=== PATIENT | male | born 1945 | race Two or more races ===

== ENCOUNTER 2016-05-05 11:37 | Inpatient (IN) | payer OTHER ==
[2016-05-05 11:55] VITALS: BMI 26.4
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
[2016-05-05] MEDS ORDERED: diphenhydrAMINE HCL 50 MG CAPSULE PO PRN (12:51)
[2016-05-05] MEDS ORDERED: NICOTINE POLACRILEX 4 MG GUM BUC PRN (12:51)
[2016-05-05] MEDS ORDERED: LOPERAMIDE HCL 2 MG CAPSULE PO PRN (12:51)
[2016-05-05] MEDS ORDERED: MAGNESIUM HYDROX 2400MG/30ML ORAL SUSPENSION 30 ML CUP PO PRN (12:51)
[2016-05-05] MEDS ORDERED: MAGNESIUM CITRATE 300 ML BOTTLE PO PRN (12:51)
[2016-05-05] MEDS ORDERED: P-EPHED 60MG/TRIPROLIDI 2.5MG TABLET PO PRN (12:51)
[2016-05-05] MEDS ORDERED: MENTHOL/PHENOL 1 EACH UD MM PRN (12:51)
[2016-05-05] MEDS ORDERED: MAG HYDROX/AL HYDROX/SIMETH 30 ML UNIT-DOSE CUP PO PRN (12:51)
[2016-05-05] MEDS ORDERED: hydrOXYzine PAMOATE 50 MG CAPSULE (FP) PO PRN (12:51)
[2016-05-05] MEDS ORDERED: guaiFENesin/D-METHORPHAN HB 10 ML UNIT-DOSE CUPS PO PRN (12:51)
[2016-05-05] MEDS ORDERED: chlordiazePOXIDE HCL 25 MG CAPSULE PO PRN (12:51)
[2016-05-05] MEDS ORDERED: ACETAMINOPHEN 325 MG TABLET (FP) PO PRN (12:51)
[2016-05-05] MEDS ORDERED: IBUPROFEN 400 MG TABLET (FP) PO PRN (12:51)
[2016-05-05] MEDS ORDERED: chlordiazePOXIDE HCL 25 MG CAPSULE PO ONE (13:44)
[2016-05-05 16:03] LABS: URINE APPEARANCE CLEAR; URINE BILIRUBIN NEGATIVE (NEGATIVE); URINE BLOOD NEGATIVE (NEGATIVE); URINE COLOR LTYELLOW; URINE GLUCOSE (UA) NEGATIVE (NEGATIVE); URINE KETONE NEGATIVE (NEGATIVE); URINE LEUK ESTERASE NEGATIVE (NEGATIVE); URINE NITRITE NEGATIVE (NEGATIVE); URINE PROTEIN NEGATIVE (NEGATIVE); URINE UROBILINOGEN NEGATIVE E.U./dl (0.2-1.0)
[2016-05-05] MEDS: chlordiazePOXIDE HCL 25 MG CAPSULE PO SCH ×2 (17:04→22:07)
--- NOTE | 2016-05-05 17:42 | EKG ---
Test Reason : Blood Pressure : / mmHG Vent. Rate : 068 BPM Atrial Rate : 068 BPM P-R Int : 152 ms QRS Dur : 094 ms QT Int : 438 ms P-R-T Axes : 064 058 045 degrees QTc Int : 465 ms NORMAL SINUS RHYTHM NORMAL ECG NO PREVIOUS ECGS AVAILABLE Confirmed by CHARISSA MCGHEE MD ([id number]) on 05/05/2016 5:42:19 PM Referred By: Confirmed By:CHARISSA MCGHEE MD
[2016-05-05] MEDS ORDERED: THIAMINE HCL 100 MG TABLET (FP) PO SCH (22:00)
[2016-05-06] MEDS: chlordiazePOXIDE HCL 25 MG CAPSULE PO SCH ×2 (05:30→10:23)
[2016-05-06] MEDS ORDERED: ARIPiprazole 5 MG TABLET (FP) PO SCH (10:00)
[2016-05-06] MEDS ORDERED: NICOTINE 21 MG/24 HOURS TOPICAL PATCH TD SCH (10:00)
[2016-05-06] MEDS ORDERED: PRENATAL VITAMINS W/ FOLIC ACID TABLET (FP) PO SCH (10:00)
[2016-05-06] MEDS ORDERED: TOLNAFTATE 1% CREAM 15 GM TUBE TP SCH (10:00)
--- NOTE | 2016-05-06 10:07 | CONSULT ---
[facility] Psychiatric Consult - Data Date of interview: 05/06/16 Admission source: [facility] Identifying data: This is 70 years old chronic alcoholic with psychiatric hospitaliation history intoxicated with: Alcohol and Nicotine Substance Abuse History: - Smoking Cessation. Smoking history: Current every day smoker. Have you smoked in the past 12 months: Yes. Aproximately how many cigarettes per day: 20. Cigars Per Day: 0. Hx Chewing Tobacco Use: No. Initiated information on smoking cessation: Yes. 'Breaking Loose' booklet given : 05/05/16. - Substance & Tx. History. Hx Alcohol Use: Yes. Substance Use Type: Alcohol. Hx Substance Use Treatment: Yes. - Substances Abused. Alcohol-vodka. Route: Oral. Frequency: Daily. Amount used: 1 1/2 pts. Age of first use: 18. Date of Last Use: 05/04/16 Medical History: hISOTYR, s/p cHOLECYSTECTOMY, Prostatectomy, LBP, Hypercholesterolemia, HTN, PPD + History Psychiatric History: Patient reports recent psychiatric hospitalizationj on 2015 at [facility]. Patient reports taking prior to admission: Trazodone 150mg po qhs. Abilify 5mg po bid Physical/Sexual Abuse/Trauma History: Denies Additional Comment: Trazodone 150mg po qhs. Abilify 5mg po bid Mental Status Exam - Mental Status Exam Alert and Oriented to: Person Cognitive Function: Fair Patient Appearance: Unkempt Mood: Sad Affect: Flat Patient Behavior: Sedated Speech Pattern: Delayed Thought Process: Circumstantial Thought Disorder: Being Controlled Hallucinations: Denies Suicidal Ideation: Denies Homicidal Ideation: Denies Insight/Judgement: Fair Sleep: Difficulty falling asleep Appetite: Weight loss Muscle strength/Tone: Mild Hypotonicity Gait/Station: Shuffling Additional Comments: Trazodone 150mg po qhs. Abilify 5mg po bid Psychiatric Findings - Problem List ([place] 1, 2,3) (1) Alcohol dependence with uncomplicated withdrawal Current Visit: Yes Status: Chronic (2) Nicotine dependence Current Visit: Yes Status: Chronic Qualifiers: Nicotine product type: cigarettes Substance use status: uncomplicated Qualified Code(s): F17.210 - Nicotine dependence, cigarettes, uncomplicated Comment: patch and gum nicotine placement (3) Alcohol induced insomnia Current Visit: Yes Status: Acute (4) Alcohol-induced anxiety disorder Current Visit: Yes Status: Acute (5) Drug-induced mood disorder Current Visit: Yes Status: Acute - Initial Treatment Plan Initial Treatment Plan: Trazodone 150mg po qhs. Abilify 5mg po bid
[2016-05-06 10:26] LABS: ALBUMIN 3.8 g/dl (3.4-5.0); ALK PHOS 77 U/L (45-117); ANION GAP 11 (8-16); BILIRUBIN,TOTAL 0.3 mg/dL (0.2-1.0); CALCIUM 9.4 mg/dL (8.5-10.1); CO2 27 mmol/L (21-32); CREATININE 1.1 mg/dL (0.7-1.3); GLUCOSE,RANDOM 126 mg/dL (74-106); SGOT/AST 33 U/L (15-37); SGPT/ALT 27 U/L (12-78); TOT PROT 7.3 g/dl (6.4-8.2)
[2016-05-06 10:39] LABS: MCH 27.9 pg (25.7-33.7); MCHC 32.4 g/dl (32.0-35.9); MEAN CELL VOLUME 86.2 fl (80-96); PLATELET COUNT 208 K/MM3 (134-434); RDW 15.6 % (11.9-15.9); WHITE BLOOD COUNT 6.6 K/mm3 (4.0-10.0)
--- NOTE | 2016-05-06 12:45 | PN ---
S CIWA - CIWA Score Nausea/Vomitin Muscle Tremors: 3 Anxiety: 3 Agitation: 3 Paroxysmal Sweats: 1-Minimal Palms Moist Orientation: 0-Oriented Tacttile Disturbances: 1-Very Mild Itch/Numbness Auditory Disturbances: 1-Very Mild Visual Disturbances: 1-Very Mild Sensitivity Headache: 2-Mild CIWA-Ar Total Score: 18 S Progress Note (SOAP) Subjective: ALERT,IRRITABLE,ANXIOUS,INTERRUPTED SLEEP,TREMOR Objective: 05/06/16 12:42 Vital Signs Temperature 98.4 F 05/06/16 10:01 Pulse Rate 71 05/06/16 10:01 Respiratory Rate 18 05/06/16 10:01 Blood Pressure 142/74 05/06/16 10:01 O2 Sat by Pulse Oximetry (%) EKG NSR,NORMAL ECG Laboratory Last Values WBC 6.6 K/mm3 (4.0-10.0) D 05/06/16 06:00 RBC 4.68 M/mm3 (4.00-5.60) 05/06/16 06:00 Hgb 13.1 GM/dL (11.7-16.9) 05/06/16 06:00 Hct 40.4 % (35.4-49) 05/06/16 06:00 MCV 86.2 fl (80-96) 05/06/16 06:00 MCHC 32.4 g/dl (32.0-35.9) 05/06/16 06:00 RDW 15.6 % (11.9-15.9) 05/06/16 06:00 Plt Count 208 K/MM3 (134-434) 05/06/16 06:00 MPV 9.0 fl (7.5-11.1) 05/06/16 06:00 Sodium 140 mmol/L (136-145) 05/06/16 06:00 Potassium 4.0 mmol/L (3.5-5.1) 05/06/16 06:00 Chloride 102 mmol/L (98-107) 05/06/16 06:00 Carbon Dioxide 27 mmol/L (21-32) 05/06/16 06:00 Anion Gap 11 (8-16) 05/06/16 06:00 BUN 14 mg/dL (7-18) D 05/06/16 06:00 Creatinine 1.1 mg/dL (0.7-1.3) 05/06/16 06:00 Creat Clearance w eGFR > 60 (>60) 05/06/16 06:00 Random Glucose 126 mg/dL (74-106) H 05/06/16 06:00 Calcium 9.4 mg/dL (8.5-10.1) 05/06/16 06:00 Total Bilirubin 0.3 mg/dL (0.2-1.0) D 05/06/16 06:00 AST 33 U/L (15-37) D 05/06/16 06:00 ALT 27 U/L (12-78) 05/06/16 06:00 Alkaline Phosphatase 77 U/L (45-117) 05/06/16 06:00 Total Protein 7.3 g/dl (6.4-8.2) D 05/06/16 06:00 Albumin 3.8 g/dl (3.4-5.0) D 05/06/16 06:00 Urine Color Ltyellow 05/05/16 14:00 Urine Appearance Clear 05/05/16 14:00 Urine pH 5.0 (5.0-8.0) 05/05/16 14:00 Ur Specific [place] 1.011 (1.001-1.035) 05/05/16 14:00 Urine Protein Negative (NEGATIVE) 05/05/16 14:00 Urine Glucose (UA) Negative (NEGATIVE) 05/05/16 14:00 Urine Ketones Negative (NEGATIVE) 05/05/16 14:00 Urine Blood Negative (NEGATIVE) 05/05/16 14:00 Urine Nitrite Negative (NEGATIVE) 05/05/16 14:00 Urine Bilirubin Negative (NEGATIVE) 05/05/16 14:00 Urine Urobilinogen Negative E.U./dl (0.2-1.0) 05/05/16 14:00 Ur Leukocyte Esterase Negative (NEGATIVE) 05/05/16 14:00 LABS PENDING Assessment: 05/06/16 12:44 WITHDRAWAL SYMPTOM Plan: CONTINUE DETOX,BGM MONITORING INITIAL GLUCOSE IS 126
[2016-05-06] MEDS ORDERED: chlordiazePOXIDE HCL 25 MG CAPSULE PO SCH (17:00)
[2016-05-06 21:30] VITALS: BP 132/71; PULSE 67; TEMP 97.9
[2016-05-06] MEDS ORDERED: traZODone HCL 50 MG TABLET (FP) PO SCH (22:00)
--- NOTE | 2016-05-06 22:40 | DS ---
[facility] Detox Discharge Summary Admission Date: 05/05/16 Discharge Date: 05/06/16 - History Present History: Alcohol Dependence Additional Comments: RECEIVED NURSE CALL, PATIENT WANTS TO SIGN OUT NOW, HAD VERBAL CONFLICT WITH ROOMMATE, REFUSED TO SWITCH ROOM WITH OTHER PATIENT REFUSED TO WAIT FACE TO FACE WITH THE PROVIDER Pertinent Past History: HYPERTENSION HYPERLIPID NICOTINE DEPENDENCE - Physical Exam Results Vital Signs: Vital Signs Temperature 97.9 F 05/06/16 21:29 Pulse Rate 67 05/06/16 21:29 Respiratory Rate 18 05/06/16 21:29 Blood Pressure 132/71 05/06/16 21:29 O2 Sat by Pulse Oximetry (%) Pertinent Admission Physical Exam Findings: WITHDRAWAL SX Laboratory Last Values WBC 6.6 K/mm3 (4.0-10.0) D 05/06/16 06:00 RBC 4.68 M/mm3 (4.00-5.60) 05/06/16 06:00 Hgb 13.1 GM/dL (11.7-16.9) 05/06/16 06:00 Hct 40.4 % (35.4-49) 05/06/16 06:00 MCV 86.2 fl (80-96) 05/06/16 06:00 MCHC 32.4 g/dl (32.0-35.9) 05/06/16 06:00 RDW 15.6 % (11.9-15.9) 05/06/16 06:00 Plt Count 208 K/MM3 (134-434) 05/06/16 06:00 MPV 9.0 fl (7.5-11.1) 05/06/16 06:00 Sodium 140 mmol/L (136-145) 05/06/16 06:00 Potassium 4.0 mmol/L (3.5-5.1) 05/06/16 06:00 Chloride 102 mmol/L (98-107) 05/06/16 06:00 Carbon Dioxide 27 mmol/L (21-32) 05/06/16 06:00 Anion Gap 11 (8-16) 05/06/16 06:00 BUN 14 mg/dL (7-18) D 05/06/16 06:00 Creatinine 1.1 mg/dL (0.7-1.3) 05/06/16 06:00 Creat Clearance w eGFR > 60 (>60) 05/06/16 06:00 Random Glucose 126 mg/dL (74-106) H 05/06/16 06:00 Calcium 9.4 mg/dL (8.5-10.1) 05/06/16 06:00 Total Bilirubin 0.3 mg/dL (0.2-1.0) D 05/06/16 06:00 AST 33 U/L (15-37) D 05/06/16 06:00 ALT 27 U/L (12-78) 05/06/16 06:00 Alkaline Phosphatase 77 U/L (45-117) 05/06/16 06:00 Total Protein 7.3 g/dl (6.4-8.2) D 05/06/16 06:00 Albumin 3.8 g/dl (3.4-5.0) D 05/06/16 06:00 Urine Color Ltyellow 05/05/16 14:00 Urine Appearance Clear 05/05/16 14:00 Urine pH 5.0 (5.0-8.0) 05/05/16 14:00 Ur Specific [place] 1.011 (1.001-1.035) 05/05/16 14:00 Urine Protein Negative (NEGATIVE) 05/05/16 14:00 Urine Glucose (UA) Negative (NEGATIVE) 05/05/16 14:00 Urine Ketones Negative (NEGATIVE) 05/05/16 14:00 Urine Blood Negative (NEGATIVE) 05/05/16 14:00 Urine Nitrite Negative (NEGATIVE) 05/05/16 14:00 Urine Bilirubin Negative (NEGATIVE) 05/05/16 14:00 Urine Urobilinogen Negative E.U./dl (0.2-1.0) 05/05/16 14:00 Ur Leukocyte Esterase Negative (NEGATIVE) 05/05/16 14:00 RPR Titer Nonreactive (NONREACTIVE) 05/06/16 06:00 LAB NOTED - Treatment Hospital Course: Detox Protocol Followed, Responded well - Medication Discharge Medications: Ambulatory Orders Aripiprazole [Abilify -] 5 mg PO BID #60 tablet 02/06/16 Trazodone HCl [Desyrel -] 150 mg PO HS #30 tablet 02/06/16 Aripiprazole [Abilify -] 5 mg PO BID #60 tablet 05/06/16 Trazodone HCl [Desyrel -] 150 mg PO HS #30 tablet 05/06/16 - AMA Did Patient Leave Against Medical Advice: Yes
[2016-05-07] MEDS ORDERED: chlordiazePOXIDE 5 MG CAPSULE PO SCH (17:00)
[2016-05-08] MEDS ORDERED: chlordiazePOXIDE HCL 10 MG CAPSULE PO SCH (17:00)
== END 2016-05-06 22:40 | disposition left against medical advice (07) | DRG 894 ==
LOC: YASAS 11:37 → Y6N 13:05
PROVIDERS: ADMIT Internal Medicine; ATTEND Internal Medicine
PROC: HZ2ZZZZ Detoxification Services for Substance Abuse Treatment (ICD-10-PCS; principal; 2016-05-06)
DX: F10.230 Alcohol dependence with withdrawal, uncomplicated (principal); F17.210 Nicotine dependence, cigarettes, uncomplicated; F10.282 Alcohol dependence with alcohol-induced sleep disorder; F10.280 Alcohol dependence with alcohol-induced anxiety disorder; F19.24 Other psychoactive substance dependence with psychoactive substance-induced mood disorder; I10 Essential (primary) hypertension
CPT/HCPCS: 36415; 80053; 81003; 85027; 86593; 93005; 93010

== ENCOUNTER 2016-11-03 17:05 | Inpatient (IN) | payer OTHER ==
--- NOTE | 2016-11-03 20:22 | HP ---
CIWA Score - CIWA Score Nausea/Vomitin Muscle Tremors: 3 Anxiety: 3 Agitation: 3 Paroxysmal Sweats: 2 Orientation: 0-Oriented Tacttile Disturbances: 2-Mild Itch/Numbness/Burn Auditory Disturbances: 2-Mild Harshness/Frighten Visual Disturbances: 2-Mild Sensitivity Headache: 2-Mild CIWA-Ar Total Score: 22 Admission ROS BHS - HPI Chief Complaint: i need help to stop drinking alcohol and cocaine Allergies/Adverse Reactions: Allergies Allergy/AdvReac Type Severity Reaction Status Date / Time No Known Allergies Allergy Verified 11/03/16 21:12 History of Present Illness: this 71 years old male with alcohol and cocaine dependence,seeking detox,last treatment [facility] 05/05/16 buddy 05/06/16 syncope bipolar disorder nicotine dependence multiple admissions in the past,keep relapsing longest period of sobriety 7 years Exam Limitations: No Limitations - Ebola screening Have you traveled outside of the country in the last 21 days: No (N) Have you had contact with anyone from an Ebola affected area: No Do you have a fever: No - Review of Systems Constitutional: Loss of Appetite, Malaise, Night Sweats, Changes in sleep, Weakness EENT: reports: Nose Congestion Respiratory: reports: No Symptoms reported Cardiac: reports: No Symptoms Reported GI: reports: Diarrhea, Nausea, Vomiting, Abdominal cramping : reports: No Symptoms Reported Musculoskeletal: reports: Back Pain, Muscle Pain Integumentary: reports: Dryness Neuro: reports: Headache, Tremors Endocrine: reports: No Symptoms Reported Hematology: reports: No Symptoms Reported Psychiatric: reports: No Sypmtoms Reported (bipolar disorder), Judgement Intact , Mood/Affect Appropiate, other Patient History - Patient Medical History Hx Anemia: No Hx Asthma: No Hx Chronic Obstructive Pulmonary Disease (COPD): No Hx Cancer: No Hx Cardiac Disorders: No Hx Congestive Heart Failure: No Hx Hypertension: Yes (no med) Hx Hypercholesterolemia: Yes (lipitor 20 mgs hs) Hx Pacemaker: No HX Cerebrovascular Accident: No Hx Seizures: No Hx Dementia: No Hx Diabetes: No Hx Gastrointestinal Disorders: No Hx Liver Disease: No Hx Genitourinary Disorders: No Hx Sexually Transmitted Disorders: No Hx Renal Disease (ESRD): No Hx Thyroid Disease: No Hx Human Immunodeficiency Virus (HIV): No (negative last 09/12) Hx Hepatitis C: No (negative) Hx Depression: Yes (on med) Hx Suicide Attempt: No Hx Bipolar Disorder: Yes (on med) Hx Schizophrenia: Yes (schizoaffective disorder) Other Medical History: no suicidal,no homicidal - Patient Surgical History Past Surgical History: Yes Hx Neurologic Surgery: No Hx Cataract Extraction: No Hx Cardiac Surgery: No Hx Lung Surgery: No Hx Breast Surgery: No Hx Breast Biopsy: No Hx Abdominal Surgery: No Hx Appendectomy: Yes (at age 18 yrs) Hx Cholecystectomy: No Hx Genitourinary Surgery: No Hx Section: No Hx Orthopedic Surgery: No Other Surgical History: prostatectomy in 2008 for bph Anesthesia Reaction: No - PPD History Previous Implant?: Yes Documented Results: Negative w/o proof PPD to be Administered?: Yes - Smoking Cessation Smoking history: Current every day smoker Have you smoked in the past 12 months: Yes Aproximately how many cigarettes per day: 20 Cigars Per Day: 0 Hx Chewing Tobacco Use: No Initiated information on smoking cessation: Yes 'Breaking Loose' booklet given: 11/03/16 - Substance & Tx. History Hx Alcohol Use: Yes Hx Substance Use: Yes Substance Use Type: Alcohol, Cocaine Hx Substance Use Treatment: Yes ([facility] 05/05/16 to 05/06/16) - Substances Abused Alcohol Route: Oral Frequency: Daily Amount used: 1pint of vodka/5 of 24 ozs of beer Age of first use: 18 Date of Last Use: 11/03/16 Cocaine Route: Inhalation Frequency: 1-2 times per week Amount used: 60$ Age of first use: 37 Date of Last Use: 11/02/16 Family Disease History - Family Disease History Family Disease History: Diabetes: Mother (alcoholic,), Heart Disease: Mother, Respiratory: Mother, Other: Brother (alcohol,dsa,) Admission Physical Exam [facility] - Physical General Appearance: Yes: Moderate Distress, Tremorous, Irritable, Sweating, Anxious HEENTM: Yes: Normal Voice, KAREN, Pharynx Normal Respiratory: Yes: Lungs Clear, Normal Breath Sounds, No Respiratory Distress Neck: Yes: Within Normal Limits, Supple, Trachea in good position Breast: Yes: Within Normal Limits Cardiology: Yes: Within Normal Limits, Regular Rhythm, Regular Rate, S1, S2 Abdominal: Yes: Within Normal Limits, Normal Bowel Sounds, Non Tender, Flat, Soft Genitourinary: Yes: Within Normal Limits Back: Yes: Muscle Spasm Musculoskeletal: Yes: Back pain, Muscle Pain Extremities: Yes: Tremors Neurological: Yes: manager environmental health and safety II-XII NML intact, Fully Oriented, Alert, Motor Strength 5/5 Integumentary: Yes: Dry Lymphatic: Yes: Within Normal Limits - Diagnostic (1) Alcohol dependence with uncomplicated withdrawal Current Visit: No Status: Chronic (2) Hypercholesteremia Current Visit: No Status: Chronic Comment: zetia (3) Hypertension Current Visit: No Status: Chronic Qualifiers: Hypertension type: essential hypertension Qualified Code(s): I10 - Essential (primary) hypertension Comment: enalapril 10 mg last dose a month ago (4) Nicotine dependence Current Visit: No Status: Chronic Qualifiers: Nicotine product type: cigarettes Substance use status: uncomplicated Qualified Code(s): F17.210 - Nicotine dependence, cigarettes, uncomplicated Comment: patch and gum nicotine placement (5) Weight loss Current Visit: Yes Status: Acute (6) Bipolar disorder Current Visit: Yes Status: Acute (7) S/P appendectomy Current Visit: Yes Status: Acute (8) S/P prostatectomy Current Visit: Yes Status: Acute (9) Tinea pedis Current Visit: Yes Status: Acute Cleared for Admission [facility] - Detox or Rehab S Level of Care: Medically Managed Detox Regimen/Protocol: Librium S Breath Alcohol Content Breath Alcohol Content: 0.100
[2016-11-03] MEDS ORDERED: MAGNESIUM CITRATE 300 ML BOTTLE PO PRN (20:50)
[2016-11-03] MEDS ORDERED: LOPERAMIDE HCL 2 MG CAPSULE PO PRN (20:50)
[2016-11-03] MEDS ORDERED: IBUPROFEN 400 MG TABLET (FP) PO PRN (20:50)
[2016-11-03] MEDS ORDERED: MAG HYDROX/AL HYDROX/SIMETH 30 ML UNIT-DOSE CUP PO PRN (20:50)
[2016-11-03] MEDS ORDERED: guaiFENesin/D-METHORPHAN HB 10 ML UNIT-DOSE CUPS PO PRN (20:50)
[2016-11-03] MEDS ORDERED: chlordiazePOXIDE HCL 25 MG CAPSULE PO ONE (20:50)
[2016-11-03] MEDS ORDERED: MAGNESIUM HYDROX 2400MG/30ML ORAL SUSPENSION 30 ML CUP PO PRN (20:50)
[2016-11-03] MEDS ORDERED: chlordiazePOXIDE HCL 25 MG CAPSULE PO PRN (20:50)
[2016-11-03] MEDS ORDERED: hydrOXYzine PAMOATE 50 MG CAPSULE (FP) PO PRN (20:50)
[2016-11-03] MEDS ORDERED: ACETAMINOPHEN 325 MG TABLET (FP) PO PRN (20:50)
[2016-11-03] MEDS ORDERED: diphenhydrAMINE HCL 50 MG CAPSULE PO PRN (20:50)
[2016-11-03] MEDS ORDERED: MENTHOL/PHENOL 1 EACH UD MM PRN (20:50)
[2016-11-03] MEDS ORDERED: P-EPHED 60MG/TRIPROLIDI 2.5MG TABLET PO PRN (20:50)
[2016-11-03 21:25] VITALS: BMI 24.7
[2016-11-03] MEDS: THIAMINE HCL 100 MG TABLET (FP) PO SCH (21:59)
[2016-11-03] MEDS: chlordiazePOXIDE HCL 25 MG CAPSULE PO SCH (22:00)
[2016-11-04 00:59] LABS: URINE APPEARANCE SLCLOUDY; URINE BILIRUBIN NEGATIVE (NEGATIVE); URINE BLOOD 1+ (NEGATIVE); URINE COLOR YELLOW; URINE GLUCOSE (UA) NEGATIVE (NEGATIVE); URINE KETONE NEGATIVE (NEGATIVE); URINE LEUK ESTERASE TRACE (NEGATIVE); URINE NITRITE NEGATIVE (NEGATIVE); URINE UROBILINOGEN NEGATIVE mg/dL (0.2-1.0)
[2016-11-04 01:16] LABS: URINE PROTEIN 1+ (NEGATIVE)
[2016-11-04 01:18] LABS: URINE BACTERIA MANY /hpf (NONE SEEN); URINE MUCUS RARE; URINE RBC 8 /hpf (0-3); URINE WBC 8 /hpf (3-5); YEAST FEW
[2016-11-04] MEDS: chlordiazePOXIDE HCL 25 MG CAPSULE PO SCH ×4 (05:50→22:08)
[2016-11-04 10:04] LABS: MCH 28.6 pg (25.7-33.7); MCHC 32.5 g/dl (32.0-35.9); MEAN CELL VOLUME 88.1 fl (80-96); MEAN PLT VOLUME 9.1 fl (7.5-11.1); PLATELET COUNT 182 K/MM3 (134-434); RDW 15.2 % (11.9-15.9); WHITE BLOOD COUNT 4.5 K/mm3 (4.0-10.0)
[2016-11-04 10:06] LABS: ANION GAP 5 (8-16); CO2 29 mmol/L (21-32); GLUCOSE,RANDOM 143 mg/dL (74-106)
[2016-11-04] MEDS: TOLNAFTATE 1% CREAM 15 GM TUBE TP SCH ×2 (10:06→22:07)
[2016-11-04] MEDS: PRENATAL VITAMINS W/ FOLIC ACID TABLET (FP) PO SCH (10:06)
[2016-11-04 10:09] LABS: ALK PHOS 65 U/L (45-117); BILIRUBIN,TOTAL 0.3 mg/dL (0.2-1.0); CALCIUM 9.1 mg/dL (8.5-10.1); CREATININE 1.2 mg/dL (0.7-1.3); SGOT/AST 29 U/L (15-37); SGPT/ALT 36 U/L (12-78); TOT PROT 5.9 g/dl (6.4-8.2)
--- NOTE | 2016-11-04 10:24 | PN ---
[facility] CIWA - CIWA Score Nausea/Vomitin-No Nausea/No Vomiting Muscle Tremors: 4-Moderate,w/Arms Extend Anxiety: 4-Mod. Anxious/Guarded Agitation: 4-Moderately Restless Paroxysmal Sweats: 1-Minimal Palms Moist Orientation: 0-Oriented Tacttile Disturbances: 3-Moderate Itch/Numb/Burn Auditory Disturbances: 0-None Visual Disturbances: 0-None Headache: 0-None Present CIWA-Ar Total Score: 16 BHS Progress Note (SOAP) Subjective: TREMO Objective: 11/04/16 10:33 Vital Signs Temperature 97.0 F L 11/04/16 09:22 Pulse Rate 84 11/04/16 09:22 Respiratory Rate 18 11/04/16 09:22 Blood Pressure 117/72 11/04/16 09:22 O2 Sat by Pulse Oximetry (%) Laboratory Last Values WBC 4.5 K/mm3 (4.0-10.0) D 11/04/16 07:40 RBC 4.19 M/mm3 (4.00-5.60) 11/04/16 07:40 Hgb 12.0 GM/dL (11.7-16.9) 11/04/16 07:40 Hct 37.0 % (35.4-49) 11/04/16 07:40 MCV 88.1 fl (80-96) 11/04/16 07:40 MCH 28.6 pg (25.7-33.7) 11/04/16 07:40 MCHC 32.5 g/dl (32.0-35.9) 11/04/16 07:40 RDW 15.2 % (11.9-15.9) 11/04/16 07:40 Plt Count 182 K/MM3 (134-434) 11/04/16 07:40 MPV 9.1 fl (7.5-11.1) 11/04/16 07:40 Sodium 143 mmol/L (136-145) 11/04/16 07:40 Potassium 4.3 mmol/L (3.5-5.1) 11/04/16 07:40 Chloride 109 mmol/L (98-107) H 11/04/16 07:40 Carbon Dioxide 29 mmol/L (21-32) 11/04/16 07:40 Anion Gap 5 (8-16) L 11/04/16 07:40 BUN 19 mg/dL (7-18) H D 11/04/16 07:40 Creatinine 1.2 mg/dL (0.7-1.3) 11/04/16 07:40 Creat Clearance w eGFR > 60 (>60) 11/04/16 07:40 Random Glucose 143 mg/dL (74-106) H 11/04/16 07:40 Calcium 9.1 mg/dL (8.5-10.1) 11/04/16 07:40 Total Bilirubin 0.3 mg/dL (0.2-1.0) 11/04/16 07:40 AST 29 U/L (15-37) 11/04/16 07:40 ALT 36 U/L (12-78) D 11/04/16 07:40 Alkaline Phosphatase 65 U/L (45-117) 11/04/16 07:40 Total Protein 5.9 g/dl (6.4-8.2) L 11/04/16 07:40 Albumin 3.0 g/dl (3.4-5.0) L D 11/04/16 07:40 Urine Color Yellow 11/04/16 00:30 Urine Appearance Slcloudy 11/04/16 00:30 Urine pH 5.0 (5.0-8.0) 11/04/16 00:30 Urine Protein 1+ (NEGATIVE) H 11/04/16 00:30 Urine Glucose (UA) Negative (NEGATIVE) 11/04/16 00:30 Urine Ketones Negative (NEGATIVE) 11/04/16 00:30 Urine Blood 1+ (NEGATIVE) H 11/04/16 00:30 Urine Nitrite Negative (NEGATIVE) 11/04/16 00:30 Urine Bilirubin Negative (NEGATIVE) 11/04/16 00:30 Urine Urobilinogen Negative mg/dL (0.2-1.0) 11/04/16 00:30 Ur Leukocyte Esterase Trace (NEGATIVE) 11/04/16 00:30 Urine RBC 8 /hpf (0-3) 11/04/16 00:30 Urine WBC 8 /hpf (3-5) 11/04/16 00:30 Urine Bacteria Many /hpf (NONE SEEN) 11/04/16 00:30 Urine Mucus Rare 11/04/16 00:30 Urine Yeast Few 11/04/16 00:30 Assessment: 11/04/16 10:33 WITHDRAWAL SX Plan: CONTINUE DETOX
--- NOTE | 2016-11-04 14:50 | EKG ---
Test Reason : Blood Pressure : / mmHG Vent. Rate : 060 BPM Atrial Rate : 060 BPM P-R Int : 158 ms QRS Dur : 094 ms QT Int : 454 ms P-R-T Axes : 063 061 054 degrees QTc Int : 454 ms NORMAL SINUS RHYTHM NORMAL ECG WHEN COMPARED WITH ECG OF 05-MAY-2016 14:35, T WAVE AMPLITUDE HAS INCREASED IN ANTERIOR LEADS Confirmed by HALIMA WOODS MD ([id number]) on 11/04/2016 2:50:11 PM Referred By: Confirmed By:HALIMA WOODS MD
--- NOTE | 2016-11-04 15:57 | CONSULT ---
[facility] Psychiatric Consult - Data Date of interview: 11/04/16 Admission source: [facility] Identifying data: Readmission to [facility] for this 71 y/o male seeking detox treatment on for alcohol and cocaine dependence.Patient is ,a father of three,homeless,unemployed and supported on [facility] benefits. Substance Abuse History: Discussed with the patient in this session.Mr Lucero confirms this report as accurate. - Smoking Cessation. Smoking history: Current every day smoker. Have you smoked in the past 12 months: Yes. Aproximately how many cigarettes per day: 20. Cigars Per Day: 0. Hx Chewing Tobacco Use: No. Initiated information on smoking cessation: Yes. 'Breaking Loose' booklet given: 11/03/16. - Substance & Tx. History. Hx Alcohol Use: Yes. Hx Substance Use: Yes. Substance Use Type: Alcohol, Cocaine. Hx Substance Use Treatment: Yes ([facility] 05/05/16 to 05/06/16). - Substances Abused. Alcohol. Route: Oral. Frequency: Daily. Amount used: 1pint of vodka/5 of 24 ozs of beer. Age of first use: 18. Date of Last Use: 11/03/16. Cocaine. Route: Inhalation. Frequency: 1-2 times per week. Amount used: 60$. Age of first use: 37. Date of Last Use: 11/02/16 Medical History: Hypertension and hypercholesterolemia.Noted history of prostatectomy (2008) and cholecystectomy (2011). Psychiatric History: Diagnosed with Schizoaffective Disorder (1996).History of multiple psychiatric hospitalizations.Hospitalized at [facility] in [facility] 10 months ago.Used to be maintained on trazodone 150 mg /hs + abilify 5 mg/day at [facility].Now lost to follow up.Mr Lucero strates that he does NOT want to get back on psychotropic medications with the exception of drugs used for detoxificationmanagement.Patient denies history of suicide attempts. Physical/Sexual Abuse/Trauma History: Patient denies. Mental Status Exam - Mental Status Exam Alert and Oriented to: Time, Place, Person Cognitive Function: Good Patient Appearance: Well Groomed Mood: Withdrawn Affect: Appropriate, Normal Range Patient Behavior: Fatigued, Cooperative Speech Pattern: Clear Voice Loudness: Normal Thought Process: Goal Oriented Thought Disorder: Not Present Hallucinations: Denies Suicidal Ideation: Denies Homicidal Ideation: Denies Insight/Judgement: Poor Sleep: Well Appetite: Good Muscle strength/Tone: Normal Gait/Station: Normal Psychiatric Findings - Problem List ([place] 1, 2,3) (1) Alcohol dependence with uncomplicated withdrawal Current Visit: Yes Status: Acute (2) Cocaine dependence Current Visit: Yes Status: Acute (3) Nicotine dependence Current Visit: Yes Status: Acute Qualifiers: Nicotine product type: cigarettes Substance use status: uncomplicated Qualified Code(s): F17.210 - Nicotine dependence, cigarettes, uncomplicated Comment: patch and gum nicotine placement (4) Drug-induced mood disorder Current Visit: Yes Status: Acute (5) Hypercholesteremia Current Visit: Yes Status: Chronic Comment: zetia (6) Hypertension Current Visit: Yes Status: Chronic Qualifiers: Hypertension type: essential hypertension Qualified Code(s): I10 - Essential (primary) hypertension Comment: enalapril 10 mg last dose a month ago - Initial Treatment Plan Initial Treatment Plan: Psychoeducation.Detoxification.Patient declines psychotropic medications.Currently asymptomatic.Not receptive to recommendation for compliance.Observation.
[2016-11-04] MEDS: THIAMINE HCL 100 MG TABLET (FP) PO SCH (22:07)
[2016-11-05] MEDS: chlordiazePOXIDE HCL 25 MG CAPSULE PO SCH ×3 (05:16→17:12)
--- NOTE | 2016-11-05 09:59 | PN ---
[facility] CIWA - CIWA Score Nausea/Vomitin-No Nausea/No Vomiting Muscle Tremors: 4-Moderate,w/Arms Extend Anxiety: 4-Mod. Anxious/Guarded Agitation: 4-Moderately Restless Paroxysmal Sweats: 1-Minimal Palms Moist Orientation: 0-Oriented Tacttile Disturbances: 3-Moderate Itch/Numb/Burn Auditory Disturbances: 0-None Visual Disturbances: 0-None Headache: 0-None Present CIWA-Ar Total Score: 16 [facility] Progress Note (SOAP) Subjective: ANXIETY,SWEATS,SLIGHT TREMOR,FATIGUE. Objective: 11/05/16 09:58 Vital Signs Temperature 97.4 F L 11/05/16 09:18 Pulse Rate 62 11/05/16 09:18 Respiratory Rate 18 11/05/16 09:18 Blood Pressure 112/67 11/05/16 09:18 O2 Sat by Pulse Oximetry (%) Laboratory Last Values WBC 4.5 K/mm3 (4.0-10.0) D 11/04/16 07:40 RBC 4.19 M/mm3 (4.00-5.60) 11/04/16 07:40 Hgb 12.0 GM/dL (11.7-16.9) 11/04/16 07:40 Hct 37.0 % (35.4-49) 11/04/16 07:40 MCV 88.1 fl (80-96) 11/04/16 07:40 MCH 28.6 pg (25.7-33.7) 11/04/16 07:40 MCHC 32.5 g/dl (32.0-35.9) 11/04/16 07:40 RDW 15.2 % (11.9-15.9) 11/04/16 07:40 Plt Count 182 K/MM3 (134-434) 11/04/16 07:40 MPV 9.1 fl (7.5-11.1) 11/04/16 07:40 Sodium 143 mmol/L (136-145) 11/04/16 07:40 Potassium 4.3 mmol/L (3.5-5.1) 11/04/16 07:40 Chloride 109 mmol/L (98-107) H 11/04/16 07:40 Carbon Dioxide 29 mmol/L (21-32) 11/04/16 07:40 Anion Gap 5 (8-16) L 11/04/16 07:40 BUN 19 mg/dL (7-18) H D 11/04/16 07:40 Creatinine 1.2 mg/dL (0.7-1.3) 11/04/16 07:40 Creat Clearance w eGFR > 60 (>60) 11/04/16 07:40 Random Glucose 143 mg/dL (74-106) H 11/04/16 07:40 Calcium 9.1 mg/dL (8.5-10.1) 11/04/16 07:40 Total Bilirubin 0.3 mg/dL (0.2-1.0) 11/04/16 07:40 AST 29 U/L (15-37) 11/04/16 07:40 ALT 36 U/L (12-78) D 11/04/16 07:40 Alkaline Phosphatase 65 U/L (45-117) 11/04/16 07:40 Total Protein 5.9 g/dl (6.4-8.2) L 11/04/16 07:40 Albumin 3.0 g/dl (3.4-5.0) L D 11/04/16 07:40 Urine Color Yellow 11/04/16 00:30 Urine Appearance Slcloudy 11/04/16 00:30 Urine pH 5.0 (5.0-8.0) 11/04/16 00:30 Ur Specific [place] 1.025 (1.005-1.025) 11/04/16 00:30 Urine Protein 1+ (NEGATIVE) H 11/04/16 00:30 Urine Glucose (UA) Negative (NEGATIVE) 11/04/16 00:30 Urine Ketones Negative (NEGATIVE) 11/04/16 00:30 Urine Blood 1+ (NEGATIVE) H 11/04/16 00:30 Urine Nitrite Negative (NEGATIVE) 11/04/16 00:30 Urine Bilirubin Negative (NEGATIVE) 11/04/16 00:30 Urine Urobilinogen Negative mg/dL (0.2-1.0) 11/04/16 00:30 Ur Leukocyte Esterase Trace (NEGATIVE) 11/04/16 00:30 Urine RBC 8 /hpf (0-3) 11/04/16 00:30 Urine WBC 8 /hpf (3-5) 11/04/16 00:30 Urine Bacteria Many /hpf (NONE SEEN) 11/04/16 00:30 Urine Mucus Rare 11/04/16 00:30 Urine Yeast Few 11/04/16 00:30 RPR Titer Nonreactive (NONREACTIVE) 11/04/16 07:40 Assessment: 11/05/16 09:58 WITHDRAWAL SX Plan: CONTINUE DETOX
[2016-11-05] MEDS: TOLNAFTATE 1% CREAM 15 GM TUBE TP SCH ×2 (10:04→22:05)
[2016-11-05] MEDS: PRENATAL VITAMINS W/ FOLIC ACID TABLET (FP) PO SCH (10:04)
[2016-11-05] MEDS: chlordiazePOXIDE 5 MG CAPSULE PO SCH (22:05)
[2016-11-05] MEDS: THIAMINE HCL 100 MG TABLET (FP) PO SCH (22:05)
[2016-11-06] MEDS: chlordiazePOXIDE 5 MG CAPSULE PO SCH (05:34)
--- NOTE | 2016-11-06 09:49 | DS ---
[facility] Detox Discharge Summary Admission Date: 11/03/16 Discharge Date: 11/06/16 - History Present History: Alcohol Dependence, Cocaine Dependence Additional Comments: PT REQUESTS TO BE D/C'D EARLY WITH [facility] ADJUSTMENT.ALERT O X 3. NAD. PT STATES WILL FOLOW UP WITH PCP AT [place], [place] FOR HIS MEDICAL MANAGEMENT. Pertinent Past History: HYPERCHOLESTEROLEMIA HTN S/P APPENDECTOMY S/P PROSTATECTOMY TINEA PEDIS - Physical Exam Results Vital Signs: Vital Signs Temperature 96.8 F L 11/06/16 06:06 Pulse Rate 70 11/06/16 06:06 Respiratory Rate 16 11/06/16 06:06 Blood Pressure 108/68 11/06/16 06:06 O2 Sat by Pulse Oximetry (%) Pertinent Admission Physical Exam Findings: WITHDRAWAL SX - Treatment Hospital Course: Detox Protocol Followed, Detoxed Safely, Responded well, Discharged Condition Good Patient has Accepted a Rehab Referral to: [facility] - Medication Discharge Medications: Ambulatory Orders Aripiprazole [Abilify -] 5 mg PO BID #60 tablet 02/06/16 Trazodone HCl [Desyrel -] 150 mg PO HS #30 tablet 02/06/16 Aripiprazole [Abilify -] 5 mg PO BID #60 tablet 05/06/16 Trazodone HCl [Desyrel -] 150 mg PO HS #30 tablet 05/06/16 - Diagnosis (1) Alcohol dependence with uncomplicated withdrawal Status: Acute (2) Hypercholesteremia Status: Chronic (3) Hypertension Status: Chronic Qualifiers: Hypertension type: essential hypertension Qualified Code(s): I10 - Essential (primary) hypertension (4) Nicotine dependence Status: Acute Qualifiers: Nicotine product type: cigarettes Substance use status: uncomplicated Qualified Code(s): F17.210 - Nicotine dependence, cigarettes, uncomplicated - AMA Did Patient Leave Against Medical Advice: No
[2016-11-06 09:55] VITALS: BP 110/74; PULSE 71; TEMP 97.9
[2016-11-06] MEDS ORDERED: chlordiazePOXIDE HCL 10 MG CAPSULE PO SCH ×2 (11:00→23:00)
== END 2016-11-06 09:50 | disposition home or self-care (01) | DRG 897 ==
LOC: YASAS 17:05 → Y3N 21:07
PROVIDERS: ADMIT Internal Medicine; ATTEND Internal Medicine
PROC: HZ2ZZZZ Detoxification Services for Substance Abuse Treatment (ICD-10-PCS; principal; 2016-11-03)
DX: F10.230 Alcohol dependence with withdrawal, uncomplicated (principal); F17.210 Nicotine dependence, cigarettes, uncomplicated; F19.24 Other psychoactive substance dependence with psychoactive substance-induced mood disorder; F31.9 Bipolar disorder, unspecified; E78.00 Pure hypercholesterolemia, unspecified; I10 Essential (primary) hypertension; B35.3 Tinea pedis; Z87.898 Personal history of other specified conditions; Z90.89 Acquired absence of other organs; Z90.79 Acquired absence of other genital organ(s)
CPT/HCPCS: 36415; 80053; 81003; 81015; 85027; 86593; 93005; 93010